=== PATIENT | female | born 1955 | race African-American/Black ===

== ENCOUNTER 2017-10-15 08:32 | Day surgery (SDC) | payer OTHER ==
[~2017-10-15] VITALS: Ht 154.9 cm; Wt 72.7 kg
[~2017-10-15 08:32] MED LIST: ASPI81 PO; CARV12.5 PO; CLOP75 PO; LEVO.025 PO; NIAS10004 PO; NITR0.6D TD; TAB-TAB PO
[2017-10-15 08:46] VITALS: BP 176/104; PULSE 90; RESP 20; TEMP 97.5; O2SAT 99
[2017-10-15] MEDS ORDERED: HYDR-4107 PO (08:55)
[2017-10-15] MEDS ORDERED: CARV12.5 PO (08:55)
[2017-10-15] MEDS ORDERED: LEVO25TA4 PO (08:55)
[2017-10-15] MEDS ORDERED: ASPI-516 CHEW (08:55)
[2017-10-15] MEDS ORDERED: PLAV75TA29 PO (08:55)
[2017-10-15] MEDS ORDERED: NIAS1000 PO (08:55)
[2017-10-15] MEDS ORDERED: MULT1TAB46 PO (08:55)
[2017-10-15] MEDS ORDERED: SODIUM CHLOR 0.9% 1000 ML IV SCH (09:15)
[2017-10-15 09:34] LABS: AUTOMATED NEUTROPHIL # 0.9 TH/MM3 (1.8-7.7); BASOPHIL % 0.5 % (0.0-2.0); EOSINOPHIL # 0.1 TH/MM3 (0-0.4); EOSINOPHIL % 3.8 % (0.0-4.0); HEMATOCRIT 36.6 % (35.0-46.0); LYMPH % 42.5 % (9.0-44.0); MEAN CELL VOLUME 101.9 FL (80.0-100.0); MEAN CORPUSCULAR HEMOGLOBIN 34.8 PG (27.0-34.0); MEAN CORPUSCULAR HGB CONC 34.1 % (32.0-36.0); MONO % 15.4 % (0.0-8.0); NEUT % 37.8 % (16.0-70.0); PLATELET COUNT 86 TH/MM3 (150-450); RED BLOOD COUNT 3.59 MIL/MM3 (4.00-5.30); RED CELL DISTRIBUTION WIDTH 15.1 % (11.6-17.2); WHITE BLOOD COUNT 2.3 TH/MM3 (4.0-11.0)
[2017-10-15 09:35] LABS: HEMO FLAGS AUTO DIFF
[2017-10-15 09:38] LABS: APTT (PATIENT) 28.4 SEC (24.3-30.1); PROTHROMBIN TIME - PATIENT 11.1 SEC (9.8-11.6)
[2017-10-15] MEDS ORDERED: LIDOCAINE HCL 1% 20 ML VIAL ONE (09:51)
[2017-10-15] MEDS ORDERED: MIDAZOLAM HCL 2 MG/2 ML VIAL ONE (10:14)
[2017-10-15 10:29] LABS: BANDS 6 % (0-6); EOSINOPHILS 10 % (0-4); POLYS (SEG NEUTROPHILS) 38 % (16-70); WBC DIFF SAMPLE 100
[2017-10-15 10:30] LABS: PLATELET ESTIMATE SMEAR LOW (NORMAL); PLATELET MORPHOLOGY NORMAL (NORMAL); SCAN/DIFF FINAL DIFF MANUAL
--- NOTE | 2017-10-15 10:54 | PD.RAD ---
Post CT Procedure Prog Note Pre Procedure Diagnosis: (1) B-cell lymphoma Post Procedure Diagnosis: (1) B-cell lymphoma Procedure Date: Oct 15, 2017 Supervising Radiologist: Alcides Crespo JR Anesthesia: Conscious Sedation Plan of Activity Patient to Unit: [facility] Patient Condition: Good Additional Comments: Successful bone marrow biopsy and aspiration. Utilized left iliac wing. See PACS Report for procedural detail/treatment Jr. Zak,Alcides Merlos MD Oct 15, 2017 10:54
[2017-10-15 11:05] VITALS: BP 146/91; PULSE 90; RESP 20; TEMP 97.9; O2SAT 97
[2017-10-15 11:15] LABS: BONE MARROW PROCESSING COMPLETE; IRON STAIN DONE; JENNER GIEMSA STAIN DONE
[2017-10-15 11:20] VITALS: BP 160/89; PULSE 90; RESP 16; O2SAT 97
[2017-10-15 11:35] VITALS: BP 170/104; PULSE 84; RESP 16; O2SAT 97
[2017-10-15 12:05] VITALS: BP 140/84; PULSE 96; RESP 16; O2SAT 96
[2017-10-15 12:35] VITALS: BP 147/86; PULSE 85; RESP 16; O2SAT 96
--- NOTE | 2017-10-15 14:43 | RADRPT ---
EXAM DATE/TIME: 10/15/2017 10:24 [place] COMPARISON: No previous studies available for comparison. INDICATIONS : Thrombocytopenia. SEDATION TIME: 15 minutes BIOPSY SITE: Left iliac MEDICATION(S): 1.) 3 mg midazolam (Versed) IV 2.) 150 mcg fentanyl (Sublimaze) IV DEVICE(S): 1.) 11 gauge Bone marrow biopsy needle MEDICAL HISTORY : Inflammatory bowel disease. Thrombocytopenia. SURGICAL HISTORY : None. ENCOUNTER: Initial ACUITY: 1 day PAIN SCORE: 0/10 LOCATION: Right pelvis A total of one core specimen(s) were obtained and sent to the laboratory for pathologic evaluation. PROCEDURE: 1. CT guided bone marrow biopsy. 2. Conscious sedation with continuous EKG and oximetry monitoring. 3. EKG and oximetry remained stable throughout the procedure. Prior to the procedure informed consent was obtained. Any appropriate prior imaging studies were rev iewed. Using automated exposure control and adjustment of the mA and/or kV according to patient size , radiation dose was kept as low as reasonably achievable to obtain optimal diagnostic quality images . DICOM format image data is available electronically for review and comparison. The site was prepped in a sterile fashion. Full sterile technique was used, including cap, mask, julisa rile gloves and gown and a large sterile sheet. Hand hygiene and 2% chlorhexidine and/or betadine/al cohol prep was utilized per protocol for cutaneous antisepsis. The skin and subcutaneous tissues wer e infiltrated with local anesthetic solution. With CT guidance the previously identified target was localized. Biopsy was performed using the presc ribed needle as above. Following biopsy marrow aspiration was performed with repeat puncture. Adequa te hemostasis was obtained with compression at the puncture site. Follow-up CT scan reveals no hemorrhage. Conscious sedation was performed with the prescribed dosages and duration as above in the presence of an independent trained radiology nurse to assist in the monitoring of the patient. EKG and oximetry remained stable throughout the procedure. The patient tolerated the procedure well and there were no complications. The patient was sent to Radiology Outpatient Unit in stable condition. CONCLUSION: 1. Uncomplicated CT guided bone marrow aspirate. 2. Uncomplicated CT guided bone marrow biopsy. Alcides Crespo Jr., MD on October 15, 2017 at 14:21 Board Certified Radiologist. This report was verified electronically.
== END 2017-10-15 13:10 | disposition home or self-care (01) ==
LOC: HRAD 08:32 → HRIP 08:34 → HRAD 13:10
PROVIDERS: ATTEND Internal Medicine
DX: C85.90 Non-Hodgkin lymphoma, unspecified, unspecified site (principal); D69.6 Thrombocytopenia, unspecified
CPT/HCPCS: 38221; 77012; 85007; 85027; 85097; 85610; 85730; 88184; 88185; 88237; 88264; 88280; 88305; 88311; 88313; 99152; C1830; J2250; J3010; J7030